=== PATIENT | male | born 1965 | race African-American/Black ===

== ENCOUNTER 2018-06-13 22:43 | Inpatient (IN) | payer OTHER ==
[~2018-06-13] VITALS: Ht 177.8 cm; Wt 71.7 kg
--- NOTE | 2018-06-13 23:06 | NUR ---
[id number] FOR ETOH. AOX3, [id number]. PT CALM & COOPERATIVE, NAD NOTED @ THIS TIME. AWAITING EVAL BY ERMD. WILL CONT TO MONITOR.
--- NOTE | 2018-06-13 23:19 | NUR ---
REPORT GIVEN TO GIANCARLO SPARKS FOR CONT OF CARE.
[2018-06-14 00:04] LABS: BASOPHILS % (AUTO) 0.5 % (0.0-2.0); HEMATOCRIT 41 % (39-51); HEMOGLOBIN 13.3 g/dL (13.5-17.5); LYMPHOCYTES # (AUTO) 2.2 /CMM (0.8-4.8); LYMPHOCYTES % (AUTO) 39.1 % (20.0-44.0); MEAN CORPUSCULAR HGB CONC 33 g/dl (31.0-36.0); MEAN CORPUSCULAR VOLUME 89 fL (80-96); MONOCYTES # (AUTO) 0.5 /CMM (0.1-1.30); MONOCYTES % (AUTO) 8.1 % (2.0-12.0); NEUTROPHILS # (AUTO) 2.8 /CMM (1.8-8.9); NEUTROPHILS % (AUTO) 49.3 % (43.0-81.0); PLATELET COUNT (AUTO) 218 /CMM (150-450); RED BLOOD CELL COUNT(AUTO) 4.57 MIL/uL (4.5-6.0); WHITE BLOOD COUNT (AUTO) 5.6 K/uL (4.3-11.0)
[2018-06-14 00:14] LABS: CALCIUM, SERUM 8.8 mg/dL (8.5-10.1); CREATININE 1.1 mg/dL (0.6-1.3); POTASSIUM 4.2 mmol/L (3.5-5.1)
[2018-06-14 00:27] LABS: ACETAMINOPHEN < 2 ug/ml (10-30); ALBUMIN 3.3 g/dL (3.4-5.0); ALCOHOL, BLOOD < 3 mg/dL (0-0); BILIRUBIN,DIRECT 0.1 mg/dL (0.0-0.2); BILIRUBIN,TOTAL 0.3 mg/dL (0.2-1.0); SALICYLATE 0.5 mg/dL (2.8-20.0); TOTAL PROTEIN, SERUM 7.8 g/dL (6.4-8.2)
--- NOTE | 2018-06-14 00:34 | NUR ---
Patient is resting comfortably in bed with eyes closed. Easily aroused. VSS
--- NOTE | 2018-06-14 02:14 | NUR ---
Patient is resting comfortably in bed with eyes closed. Easily aroused. VSS
--- NOTE | 2018-06-14 03:23 | NUR ---
Patient is resting comfortably in bed with eyes closed. Easily aroused. VSS
--- NOTE | 2018-06-14 05:53 | NUR ---
Patient is resting comfortably in bed with eyes closed. Easily aroused. VSS
[2018-06-14] MEDS ORDERED: FUROSEMIDE 40 MG/4 ML VIAL ONE (05:58)
[2018-06-14] MEDS ORDERED: CEFTRIAXONE 1GM BAG (ER ONLY) 50 ML IV ONE (05:58)
[2018-06-14] MEDS ORDERED: CEFTRIAXONE 1GM BAG (ER ONLY) 1 GM/50 ML PIGGYBACK IV ONE (06:00)
[2018-06-14] MEDS ORDERED: FUROSEMIDE 40 MG/4 ML VIAL IV ONE (06:00)
[2018-06-14] MEDS ORDERED: IV NS 0.9% 1,000 ML IV PRN (06:05)
[2018-06-14] MEDS ORDERED: MAGNESIUM HYDROXIDE 30 ML UDC PO PRN (06:30)
[2018-06-14] MEDS ORDERED: ONDANSETRON HCL/PF 4 MG/2 ML VIAL IVP PRN (06:30)
[2018-06-14] MEDS ORDERED: ZOLPIDEM TARTRATE 5 MG TABLET PO PRN (06:30)
[2018-06-14] MEDS ORDERED: DEXTROSE 50%-WATER 50 ML DISP.SYRIN IV PRN (06:30)
[2018-06-14] MEDS ORDERED: HYDROCODONE/APAP 5/325MG 1 EACH TABLET PO PRN (06:30)
[2018-06-14] MEDS ORDERED: Z GUARD REMEDY 2 OZ OINT TP PRN (06:30)
[2018-06-14] MEDS ORDERED: INSULIN REGULAR, HUMAN 100 UNIT/ML 3 ML VIAL SQ PRN (06:30)
[2018-06-14] MEDS ORDERED: MAG HYDROX/AL HYDROX/SIMETH 30 ML UDC PO PRN (06:30)
[2018-06-14] MEDS ORDERED: ACETAMINOPHEN 325 MG TABLET PO PRN (06:30)
--- NOTE | 2018-06-14 07:09 | NUR ---
CALLED FOR REPORT. NO NURSES AVAILABLE AT THIS TIME. WILL TRY AGAIN IN
[2018-06-14 07:23] LABS: APPEARANCE,URINE CLEAR (CLEAR); BILIRUBIN,URINE NEGATIVE (NEGATIVE); BLOOD, URINE NEGATIVE Ery/uL (NEGATIVE); COLOR,URINE YELLOW (YELLOW); KETONES,URINE NEGATIVE (NEGATIVE); LEUKOCYTE ESTERASE ,URINE NEGATIVE (NEGATIVE); NITRITE, URINE NEGATIVE (NEGATIVE); PROTEIN,URINE 1+ mg/dl (NEGATIVE); UGLUCOSE NEGATIVE (NEGATIVE); UROBILINOGEN,URINE 0.2 EU/dL (0.2)
[2018-06-14] MEDS: BLOOD SUGAR DIAGNOSTIC 1 EACH STRIP IN SCH ×2 (07:30→11:39)
[2018-06-14 07:34] LABS: MAGNESIUM 1.9 mg/dL (1.8-2.4); PHOSPHORUS 4.4 mg/dL (2.5-4.9)
--- NOTE | 2018-06-14 07:35 | NUR ---
REPORT GIVEN TO KAYLIN MONDRAGON.
[2018-06-14] MEDS ORDERED: FURO-144 PO (07:45)
[2018-06-14] MEDS ORDERED: POTA10TA15 PO (07:45)
[2018-06-14] MEDS ORDERED: METF-440 PO (07:45)
[2018-06-14] MEDS ORDERED: [UNRECOGNIZED DRUG - REMARK] PO (07:48)
--- NOTE | 2018-06-14 07:50 | NUR ---
m/s shop girl: admission admitted this 53 yr old male pt from [facility] with dx: chf and community acquired pneumonia. awake, a/ox3; mumbles words and is a poor historian and very difficult to understand. oriented to room and surroundings. no c/o pain, shortness of breath, chest pain or any discomfort. social media job titles consulted due to homelessness. pt easily irritated and agitated, but no aggressive behavior. tele [id number]. instructed to call for assistance. will continue to monitor.
[2018-06-14] MEDS ORDERED: HYDROMORPHONE INJ 0.5 MG/0.5 ML SYRINGE IV PRN (08:00)
[2018-06-14 08:12] VITALS: BP 141/84
[2018-06-14] MEDS: PANTOPRAZOLE 40 MG TABLET.DR PO SCH ×2 (08:56→09:50)
[2018-06-14] MEDS ORDERED: AZITHROMYCIN 500 MG in IV D5W 250 ML IV SCH (09:00)
[2018-06-14] MEDS ORDERED: ENOXAPARIN SODIUM 40 MG/0.4 ML DISP.SYRIN SQ SCH (09:00)
[2018-06-14] MEDS ORDERED: FUROSEMIDE 40 MG/4 ML VIAL IV SCH ×2 (09:00→09:30)
--- NOTE | 2018-06-14 09:17 | NUR ---
tele outside plant field engineer: notes iv azithromycin 250mg ivpb given by rn. instructed to call for assistance. will continue to monitor.
[2018-06-14] MEDS ORDERED: VALSARTAN 80 MG TABLET PO SCH (09:30)
--- NOTE | 2018-06-14 09:45 | NUR ---
tele farm adviser: notes pt c/o burning sensation to his iv site. check iv and patent with no s/s of infiltration. ice pack applied. instructed to call for assistance. will continue to monitor.
[2018-06-14 09:50] VITALS: BP 141/84
--- NOTE | 2018-06-14 10:00 | NUR ---
m/s assignment manager: notes pt yanks his iv out and angry at this time. reality orientation provided prn. pt refused another iv insertion. will continue to monitor.
--- NOTE | 2018-06-14 10:30 | NUR ---
m/s financial sales representative: notes pt acting inappropriate with female staff. pt easily irritated and gets angry when set limits provided prn. cn aware. will continue to monitor.
--- NOTE | 2018-06-14 11:28 | NUR ---
Social service consult requested by GUILLERMINA Melvin for homelessness and alcohol abuse. Pt. is a 53 year old male who was admitted to [facility] for CHF. MATT met with pt. bedside. Pt. is alert and oriented x 4. Pt. appears disheveled and unkempt. Pt. speech is mumbled and is hard to understand. Pt. states he is homeless. Pt. is an alcoholic and drinks daily. Pt. refused to say what and how much alcohol he drinks daily. Pt. states he receives approximately $1008 per month in SSI. Pt. is interested in an Independent living facility. SW to refer pt. to [facility]. MATT encouraged pt. to attend an alcohol treatment program, however pt. declined and said he needs an independent living placement. MATT contacted [facility] living who informed MATT that she has openings in [facility]. MATT asked pt's GIANCARLO Figueroa to have pt. contact Isa since she would like to speak to the pt. MATT gave Isa's contact number to GIANCARLO Figueroa.
--- NOTE | 2018-06-14 11:30 | NUR ---
m/s health insurance assessor: notes sandoval ([email or web address]) called and provided assisted living facility personal lines sales executive and number. pt spoke to verenice (agricultural production engineer) on the phone. pt removed his tele box and refused to wear it.
--- NOTE | 2018-06-14 12:00 | NUR ---
tele assembly worker: notes after eating his lunch, pt got dressed. pt refusing to wear hospital gown.
--- NOTE | 2018-06-14 12:20 | NUR ---
m/s tapper helper: notes pt threatening to leave against medical advice and wants to sign all his papers as soon as possible as stated. pt wants to go get his paycheck. pt is voluntary leaving the hospital without being seen by a physician. explained and teaching provided on risks and consequences involving of leaving the hospital as this time, the benefits of continued treatment and hospitalization, but pt insisting leaving now. pt verbalized understanding. all ama forms signed by pt. all d'c papers and belongings given to pt. fide and dr. moise notified and made aware.
--- NOTE | 2018-06-14 12:22 | NUR ---
m/s mini shifter: discharged pt left hospital via ambulatory at this time with all belongings and ama discharge papers.
--- NOTE | 2018-06-14 12:35 | NUR ---
SW was informed by Med Surg 3 SAEED Monroe and pt's RN Henry that pt. left AMA.
[2018-06-15] MEDS ORDERED: CEFTRIAXONE 1 G in IV D5W 50 ML IV SCH (09:00)
[2018-06-22] MEDS ORDERED: METFORMIN 500 MG TABLET PO SCH (17:00)
[2018-06-23] MEDS ORDERED: POTASSIUM CHLORIDE 10 MEQ TABLET.SA PO SCH (09:00)
[2018-06-23] MEDS ORDERED: FUROSEMIDE 40 MG TABLET PO SCH (09:00)
== END 2018-06-14 12:22 | disposition left against medical advice (07) | DRG 194 ==
LOC: ER 22:45 → TELE 06-14 06:52
PROVIDERS: ADMIT Nurse Practitioner Acute Care; ATTEND Nurse Practitioner Acute Care
DX: I11.0 Hypertensive heart disease with heart failure (principal); I21.A1 Myocardial infarction type 2; G72.1 Alcoholic myopathy; E11.9 Type 2 diabetes mellitus without complications; Z59.0 Homelessness; E78.5 Hyperlipidemia, unspecified; F10.20 Alcohol dependence, uncomplicated; I50.33 Acute on chronic diastolic (congestive) heart failure; Y90.0 Blood alcohol level of less than 20 mg/100 ml
CPT/HCPCS: 36415; 71045-TC; 80048-TC; 80061-TC; 80076-TC; 80305; 81000-TC; 83735-TC; 83880; 84100-TC; 84484-TC; 85025-TC; 85730-TC; 93307-TC; G0378; G0480; J0456; J0696; J1650; J1815; J1940; J7050; J7060